=== PATIENT | male | born 1935 | race Caucasian/White ===

== ENCOUNTER 2018-08-17 21:11 | Emergency (ER) | payer OTHER ==
[~2018-08-17] VITALS: Ht 182.9 cm; Wt 68.0 kg
[2018-08-17 21:16] VITALS: Ht 182.9 cm; Wt 68.0 kg
[2018-08-17 22:59] VITALS: BP 106/78
== END 2018-08-17 22:59 | disposition home or self-care (01) ==
LOC: ED 21:11
DX: S90.32XA Contusion of left foot, initial encounter (principal); G20 Parkinson's disease; F02.80 Dementia in other diseases classified elsewhere, unspecified severity, without behavioral disturbance, psychotic disturbance, mood disturbance, and anxiety; X58.XXXA Exposure to other specified factors, initial encounter; Y93.89 Activity, other specified; Y92.89 Other specified places as the place of occurrence of the external cause; Y99.8 Other external cause status
CPT/HCPCS: Q0092

== ENCOUNTER 2018-09-08 10:34 | Inpatient (IN) | payer OTHER ==
[~2018-09-08] VITALS: Ht 172.7 cm; Wt 63.2 kg
[2018-09-08 10:38] VITALS: Ht 172.7 cm; Wt 63.2 kg
--- NOTE | 2018-09-08 10:56 | NUR ---
PT NOTED TO HAVE BLACK STOOL IN DIAPER ON RECTAL TEMP CK. ERP MADE AWARE. OCCULT TEST DONE BY ERP AND FOUND TO BE "POSITIVE." INCONTINENT CARE BEING GIVEN.
--- NOTE | 2018-09-08 10:56 | NUR ---
ERP AT BEDSIDE ON PT'S ARRIVAL.
--- NOTE | 2018-09-08 11:15 | NUR ---
AT BEDSIDE AND CONFIRMS EMS STORY WITH THE EXCEPTION THAT SHE WAS THE ONE BATHING PT AND WITNESSED SEIZURE NOT DAUGHTER.
--- NOTE | 2018-09-08 11:35 | NUR ---
X-RAY TEST BEING DONE AT BEDSIDE.
[2018-09-08 11:36] LABS: CALCIUM 8.5 mg/dL (8.5-10.1); CARBON DIOXIDE 21.3 mmol/L (21-32); CHLORIDE SERUM 110 mmol/L (98-107); CREATININE SERUM 1.4 mg/dL (0.7-1.3); GLUCOSE SERUM 124 mg/dL (74-106); POTASSIUM SERUM 4.1 mmol/L (3.5-5.1); SODIUM SERUM 145 mmol/L (136-145)
[2018-09-08 11:44] LABS: BASOPHIL % 0.3 % (0-2)
[2018-09-08 11:48] LABS: ALKALINE PHOSPHATASE 72 U/L (46-116); ALT/SGPT 16 U/L (16-63); AST/SGOT 11 U/L (15-37); BILIRUBIN TOTAL 0.3 mg/dL (0.20-1.00); FREE T4 1.22 ng/dL (0.76-1.46); FREE THYROXINE INDEX 2.7 ug/dL (1.4-4.5); T4(THYROXINE) 7.1 ug/dL (4.7-13.3); TOTAL PROTEIN, SERUM 6.9 g/dL (6.4-8.2)
[2018-09-08 11:49] LABS: ALBUMIN 2.6 g/dL (3.4-5.0); CK-MB 1.6 ng/mL (0-3.6)
[2018-09-08 12:20] LABS: RED CELL DISTRIBUTION WIDTH 21.5 % (11.5-14.5)
[2018-09-08 12:38] LABS: UA SPECIFIC GRAVITY 1.025 (1.005-1.035); microscopic required? YES; urine erythrocyte 3+ (NEGATIVE)
--- NOTE | 2018-09-08 12:52 | NUR ---
PT TO CT AT THIS TIME.
--- NOTE | 2018-09-08 13:27 | NUR ---
ADDITIONAL MEDS GIVEN PER ERP'S ORDERS. NO CHANGE IN STATUS AT THIS TIME. FAMILY REMAINS AT BEDSIDE. PT'S BELONGINGS WITH FAMILY.
[2018-09-08 13:32] LABS: ERYTHROCYTE SED RATE 50 mm/hr (0-20)
[2018-09-08 13:36] LABS: PLATELET COUNT 537 x10^3mcL (130-400)
--- NOTE | 2018-09-08 13:38 | NUR ---
PT'S EYES OPENED AND RESPONDING TO RN. APPEARS MORE ALERT. 2ND BLANKET GIVEN. FAMILY TAKEN TURNS AT BEDSIDE. VSS. BREATHING EASY AND UNLABORED.
[2018-09-08] MEDS ORDERED: AZILECT1 M1 PO (13:54)
[2018-09-08] MEDS ORDERED: PROSCAR5 MG PO (13:55)
[2018-09-08] MEDS ORDERED: FLO4 PO (13:55)
[2018-09-08] MEDS ORDERED: [UNRECOGNIZED DRUG - OTHER] PO (13:56)
[2018-09-08] MEDS ORDERED: NEUPRO TD (13:57)
[2018-09-08] MEDS ORDERED: LATANOPROST2.5 ML OU (13:57)
[2018-09-08] MEDS ORDERED: ANORO ELLIPTA1 POW IH (13:58)
[2018-09-08 14:32] VITALS: BP 143/60
--- NOTE | 2018-09-08 15:43 | NUR ---
PT ARRIVED ON UNIT VIA BED AT THIS TIME. ACCOMPANIED BY RN AND ERT. TRANSFERRED TO ICU BED. STUDENT LIFE VICE PRESIDENT PLACED. PT LETHARGIC, DOES NOT FOLLOW COMMANDS, DOES NOT OPEN EYES SPONT AND RESPONDS TO PAINFUL STIMULI. TREMORS/TICS NOTED TO BUE. RA. CHEST EXPANSION SYMM, BREATHING E/U AND REGULAR EFFORT. RUL WHEEZE NOTED UPON AUSCULTATED. NO COUGH NOTED. NSR WITH RBBB ON MONITOR. CHEST WALL INTACT. ABD SOFT, FLAT. BOWEL SOUNDS ACTIVE X4 QUADRANTS. PER DAUGHTER LAST BM THIS AM. F/C IN PLACE, DRAINING TO GRAVITY AND NO DEPENDENT LOOPS. MINIMAL URINE IN BAG. NO EDEMA NOTED. CAP REFILL IMM. PULSES MODERATE X4. EXTREMITIES WARM, DRY AND VIVEROS. LFA AND RFA PERIPHERAL IV SITES WNL AND DRESSINGS CDI. 500 ML NS INFUSING @ 126 ML/HR. SKIN INTACT. ISOGEL MATTRESS PLACED AND SCDS TO BLE. SEIZURE PRECAUTIONS PLACED. AND DAUGHTER AT BEDSIDE AND UPDATED ON PT'S PLAN OF CARE. EDUCATED ON NEED FOR INCREASED MONITORING. IN AGREEMENT
[2018-09-08] MEDS ORDERED: KEPPRA500 MG PO (16:21)
--- NOTE | 2018-09-08 16:24 | NUR ---
PHYSICAL THERAPY DAILY NOTES CO-SIGN All documentation done by the Inspector Poising for 09/08/18 has been reviewed. I agree with the documentation. Reviewed/Co-Signed by: Sho Alonso PT Documentation Done by:URSZULA MAY
--- NOTE | 2018-09-08 17:00 | NUR ---
PT PLACED ON ISOGEL MATTRESS. BLE SCDS PLACED
[2018-09-08 17:01] VITALS: BP 127/79
--- NOTE | 2018-09-08 17:31 | NUR ---
PT GIVEN ROLLED UP HAND TOWEL FOR HANDS TO FIDDLE WITH.
--- NOTE | 2018-09-08 17:57 | NUR ---
DR. ROMAN AT BEDSIDE TO SPEAK WITH PT'S DAUGHTER, ED, PER ED PT DOES HAVE A DNR IN PLACE. STS HER MOTHER WILL BRING A COPY FOR US. PLAN OF CARE DISCUSSED WITH DAUGHTER. ALL PARTIES IN AGREEMENT.
--- NOTE | 2018-09-08 18:16 | NUR ---
PT'S BROUGHT IN PT'S HOME MED, NEUPRO, PATCHES. TAKEN TO PHARMACY FOR VERIFICATION
[2018-09-08 19:20] VITALS: BP 140/100
[2018-09-09] VITALS: BP 140/55
--- NOTE | 2018-09-09 | NUR ---
PT SLEEPING. GRIMACES/MOANS TO PAINFUL STIMULI. NO SOB ON ROOM AIR. BREATHING EVEN AND UNLABORED. NO DISTRESS NOTED. NO S/S OF PAIN. TREMORS NOTED TO BUE. SAFETY MEASURES IN PLACE. BED IN LOWEST POSITION. SIDE RAILS WITH PADS. WILL CONTINUE TO MONITOR.
[2018-09-09 03:40] VITALS: BP 131/50
--- NOTE | 2018-09-09 03:40 | NUR ---
PT LETHARGIC. GRIMACES TO PAINFUL STIMULI. NO SOB ON ROOM AIR. BREATHING EVEN AND UNLABORED. CHEST RISE SYMMETRICAL. TREMORES TO BUE. NO SEIZURES NOTED. SAFETY MEASURES IN PLACE. BED IN LOWEST POSITION. SIDE RAILS UP WITH PADS. WILL CONTINUE TO MONITOR.
[2018-09-09 05:20] LABS: BASOPHIL % 0.6 % (0-2); PLATELET COUNT 396 x10^3mcL (130-400)
[2018-09-09 05:25] LABS: RED CELL DISTRIBUTION WIDTH 21.2 % (11.5-14.5)
[2018-09-09 05:53] LABS: CALCIUM 8.4 mg/dL (8.5-10.1); CHLORIDE SERUM 114 mmol/L (98-107); GLUCOSE SERUM 80 mg/dL (74-106); POTASSIUM SERUM 3.6 mmol/L (3.5-5.1); SODIUM SERUM 145 mmol/L (136-145); T4(THYROXINE) 5.9 ug/dL (4.7-13.3)
--- NOTE | 2018-09-09 06:26 | NUR ---
PT REMAINED LETHARGIC. OPENED EYES AND GROANED WHEN TURNED THIS MORNING. NO SOB ON ROOM AIR. SMALL SOFT TARRY STOOL X1. CLEANED AND MADE COMFORTABLE. SAFETY MEASURES MAINTAINED. SIDE RAILS UP WITH PADS. WILL ENDORSE CONTINUITY OF CARE TO ONCOMING RN.
--- NOTE | 2018-09-09 07:21 | NUR ---
RECEIVED REPORT FROM LD MCKENZIE. WILL RESUME TREAMENT AND CARE PLAN.
--- NOTE | 2018-09-09 08:00 | NUR ---
DR. ROMAN AT BEDSIDE ASSESSING PT. PER DR. ROMAN PT IS OKAY TO BE TRANSFER TO [facility]. RECIEVED NO OTHER NEW ORDERS.
--- NOTE | 2018-09-09 08:35 | NUR ---
RECIEVED CONSENT FROM TO REQUEST MEDICAL RECORDS FROM [facility].
--- NOTE | 2018-09-09 08:50 | NUR ---
AT PT BEDSIDE. DISCUSSED WITH AND DAUGHTER ABOUT DOING EGD PROCEDURE. ALL QUESTIONS AND CONCERNS ANSWERED. AGREED. CONSENT SIGNED FOR PROCEDURE.
[2018-09-09 09:13] LABS: T3 TOTAL 0.98 ng/mL
--- NOTE | 2018-09-09 10:27 | NUR ---
EGD SET UP AT BEDSIDE WITH MARYJO RN AT BEDSIDE, AWAITING FOR DR. HANSON'S ARRIVAL.
[2018-09-09 10:37] LABS: RED BLOOD CELLS 3.4 M/mm3 (4.52-5.90)
--- NOTE | 2018-09-09 10:45 | NUR ---
DR. VALENTINO AT BEDSIDE FOR EGD.
--- NOTE | 2018-09-09 10:55 | NUR ---
DR. VALENTINO EXPLAINING EGD RESULTS AND RECOMMEND ENDOSCOPY BEFORE D/C. PT'S AND DAUGHTER VERBALIZED UNDERSTANINDG. A COPY OF PICTURES FROM PROCEDURE WAS PROVIDED.
--- NOTE | 2018-09-09 11:02 | NUR ---
SECURITY ALARM INSTALLER AT BEDSIDE FOR BLOOD DRAW.
--- NOTE | 2018-09-09 11:04 | NUR ---
PER GI RN PT HAS EROSIVE GASTRITIST AND GERD. PER RN PT ERCIEVED 2MG OF VERSED AND 25 MCG OF FENTANY; DURING EGD. AWAITING FOR H. PYLORI RSULTS.
--- NOTE | 2018-09-09 12:04 | NUR ---
PT HAD A LIQUID BM, ALL LINENS WERE CHANGED. NO SIGNS OF SKIN BREAK DOWN.
[2018-09-09 12:09] LABS: IRON 8 ug/dL (65-170); TOTAL IRON BINDING CAPACITY 186 ug/dL (250-450)
[2018-09-09 12:15] VITALS: BP 116/52
--- NOTE | 2018-09-09 13:17 | NUR ---
PER SPOKE WITH MOTHER OF PATIENT. MOTHER GAVE CONSENT VIA TELEPHONE FOR TRACH PLACEMENT AND CENTRAL LINE PLACEMENT VIA TELEPHONE CONSENT
--- NOTE | 2018-09-09 13:40 | NUR ---
PT HAD A LIQUID LOOSE BM, LINENS CLEANED AND PT CLEANED.
--- NOTE | 2018-09-09 14:56 | NUR ---
REPORT GIVEN TO BRAD MCKENZIE, PT WILL BE TRANSFERRING TO ROOM 206B BY BED ON ROOM AIR WITH TELE MONITOR ATTACH. DAUGHTER IS MADE AWARE OF TRANSFER. PT HAS ALL PERSONAL BELONGINGS.
--- NOTE | 2018-09-09 15:12 | NUR ---
PATIENT TRANSFERED FROM ICU BED 6 TO [facility] ACCOMPANIED BY MIN RN. RECEIVED PATIENT SITTING UP IN BED AWAKE A/O TO SELF, AND DAUGHTER AT BEDSIDE. TELE # 6 APPLIED, NO SIGNS OF PAIN NOTED. BREATHING EVEN UNLABBORED ON RA, NO DISTRESS NOTED. IV TO RFA AND LFA H/L INTACT AND PATEINT. PATIENT HAS QUIROS CATH TO GRAVITY DRAINING YELLOW URINE. PATIENT AND FAMILY ORIENTED TO ROOM. INSTRUCTED TO CALL FOR ASSISTANCE IF NEEDED. SAFETY PRECAUTIONS IN PLACE. WILL MONITOR.
--- NOTE | 2018-09-09 15:24 | NUR ---
RECEIVED TELEPHONE ORDERS FROM DR Pat PATEL TO TRANSFER PATIENT TO [facility] TODAY VIA [facility]. ARRANGEMENTS DONE BY CASE MANAGEMENT. ATTENDING NURSE BRAD MADE AWARE.
[2018-09-09 15:30] VITALS: BP 151/47
--- NOTE | 2018-09-09 16:37 | NUR ---
CALLED [facility] AND GAVE PATIENT REPORT TO KELSI MCKENZIE. PATIENT IS BEING TRANSFERED PER INSURANCE REQUEST TO CONTRACTED FACILITY. ALL QUESTIONS AND CONCERNS ADDRESSED. PATIENT IS SCHEDULED TO PICKED UP BY [facility] AT 1730. AND DAUGTHER AT BEDSIDE AWARE.
--- NOTE | 2018-09-09 16:50 | NUR ---
PATIENT IS TO BE TRANSFERED TO [facility]. PATIENTS SONIA AND DAUGHTER ED AT BEDSIDE, VERBALIZED UNDERSTANDING PATIENT IS BEING TRANSFERED [place] [facility] [place] HOSPITALIST PROGRAM DIRECTOR TIME AT 1730. ALL QUESTIONS AND CONCERNS ADDRESSED. SAFETY PRECAUTIONS IN PLACE.
--- NOTE | 2018-09-09 18:24 | NUR ---
PATIENT IS TO BE TRANSFERED TO [facility] AT BEDSIDE. PATIENT TRANSFERED FROM BED TO [facility], IV TO RFA/LFA H/L, QUIROS CATH IN PLACE. PATIENT ASSISTED DOWN TO MEDICAL VAN VIA [facility] ACCOMPANIED BY [facility], AND DAUGHTER, PER PATIENTS BELONINGS ARE AT HOME.
[2018-09-10 04:13] LABS: RAPID PLASMA REAGIN Non Reactive (Non Reactive)
== END 2018-09-09 18:25 | disposition short-term general hospital (02) | DRG 871 ==
LOC: ED 10:34 → IC 13:45 → DU 09-09 15:12
PROVIDERS: Internal Medicine Gastroenterology; Specialist; ADMIT Internal Medicine
PROC: 0DB68ZX Excision of Stomach, Via Natural or Artificial Opening Endoscopic, Diagnostic (ICD-10-PCS; principal; 2018-09-09 09:30)
DX: A41.9 Sepsis, unspecified organism (principal); N17.0 Acute kidney failure with tubular necrosis; N39.0 Urinary tract infection, site not specified; E44.0 Moderate protein-calorie malnutrition; K22.10 Ulcer of esophagus without bleeding; E87.2 Acidosis; K92.1 Melena; J44.1 Chronic obstructive pulmonary disease with (acute) exacerbation; D50.0 Iron deficiency anemia secondary to blood loss (chronic); K21.0 Gastro-esophageal reflux disease with esophagitis; K44.9 Diaphragmatic hernia without obstruction or gangrene; I95.9 Hypotension, unspecified; G20 Parkinson's disease; F02.80 Dementia in other diseases classified elsewhere, unspecified severity, without behavioral disturbance, psychotic disturbance, mood disturbance, and anxiety; G40.409 Other generalized epilepsy and epileptic syndromes, not intractable, without status epilepticus; N18.2 Chronic kidney disease, stage 2 (mild); Z68.25 Body mass index [BMI] 25.0-25.9, adult
CPT/HCPCS: 36600; 43235; 84439; 86431; 87804; 90658; C9113; J0171; J0696; J1200; J1610; J1953; J1956; J2060; J2250; J2310; J3010; J3490; J7040; Q0092

== ENCOUNTER 2018-11-29 20:26 | Inpatient (IN) | payer OTHER, MEDICAID ==
[~2018-11-29] VITALS: Ht 177.8 cm; Wt 64.9 kg
[~2018-11-29 20:26] MED LIST: ANORO ELLIPTA1 POW IH; AZILECT1 M1 PO; FLO4 PO; KEPPRA500 MG PO; LATANOPROST2.5 ML OU; NEUPRO TD; PROSCAR5 MG PO; [UNRECOGNIZED DRUG - OTHER] PO
[2018-11-29 21:02] VITALS: Ht 177.8 cm; Wt 64.9 kg
[2018-11-30] VITALS (7 sets, daily range): BP systolic 150–172; BP diastolic 40–71
--- NOTE | 2018-11-30 00:25 | NUR ---
PATIENT PRESENTED TO THE ED WITH C/O DIARRHEA FOR 3 WEEKS. PATIENT HAD A GTUBE PLACED IN SEP 2018, AND HAS BEEN ON THE SAME FORMULA SINCE PLACED. PATIENTS STATES SHE HAS TRIED TO CALL HIS PCP BUT NOBODY HAS RETURNED HER CALL. PATIENT BREATHING EVEN AND UNLABORED. NO OTHER S/S OF DISTRESS NOTED. PLACED PATIENT ON ALL MONITORS FOR FURTHER EVALUATION.
[2018-11-30 00:27] LABS: CHLORIDE SERUM 108 mmol/L (98-107); CREATININE SERUM 0.8 mg/dL (0.7-1.3); GLUCOSE SERUM 121 mg/dL (74-106); POTASSIUM SERUM 3.1 mmol/L (3.5-5.1); SODIUM SERUM 143 mmol/L (136-145)
[2018-11-30 00:32] LABS: ALKALINE PHOSPHATASE 73 U/L (46-116); ALT/SGPT 14 U/L (16-63); AST/SGOT 3 U/L (15-37); BILIRUBIN TOTAL 0.3 mg/dL (0.20-1.00); TOTAL PROTEIN, SERUM 7.5 g/dL (6.4-8.2)
[2018-11-30 00:33] LABS: ALBUMIN 3.3 g/dL (3.4-5.0)
[2018-11-30 00:35] LABS: BASOPHIL % 0.3 % (0-2); PLATELET COUNT 315 x10^3mcL (130-400)
[2018-11-30 00:36] LABS: RED CELL DISTRIBUTION WIDTH 20.4 % (11.5-14.5)
--- NOTE | 2018-11-30 01:00 | NUR ---
PATIENT RESTING ON GURNEY- NO S/S OF DISTRES NOTED. FAMILY IS BEDSIDE.
[2018-11-30] MEDS ORDERED: IPRATROPIUM BROM3 M2 (02:02)
[2018-11-30] MEDS ORDERED: OXCARBAZEPINE300 M1 PO (02:03)
[2018-11-30] MEDS ORDERED: LANSOPRAZOLE30 M2 PO (02:03)
[2018-11-30] MEDS ORDERED: METHENAMINE HIPP1 G1 PO (02:04)
[2018-11-30] MEDS ORDERED: SINEMET 25-1001 TAB PO (02:05)
--- NOTE | 2018-11-30 02:11 | NUR ---
PROVIDED REPORT TO JONAH LANDRUM FOR CONTINUED CARE OF PATIENT.
[2018-11-30 02:18] LABS: CHOLESTEROL/HDL RATIO 2.4; MAGNESIUM 2.1 mg/dL (1.8-2.4)
[2018-11-30 02:22] LABS: FREE T4 0.64 ng/dL (0.76-1.46); T3 TOTAL 0.99 ng/mL
[2018-11-30 02:26] LABS: FREE THYROXINE INDEX 1.2 ug/dL (1.4-4.5); T4(THYROXINE) 3.6 ug/dL (4.7-13.3)
--- NOTE | 2018-11-30 02:31 | NUR ---
RECEIVED PT FROM ED VIA DESTIN ACCOMPANIED BY RN AND FAMILY. NO ACUTE DISTRESS NOTED. EVEN AND UNLABORED RESPIRATION ON 2LNC. ON TELE #28 READING SR 66 WITH BBB. IV 24G TO R WRIST PATENT AND INTACT. PT UPPER EXTREMITIES CONTRACTED. HX OF PARKINSONS. AIR MATTRESS APPLIED. CONTACT ISOLATION INITIATED FOR POSS. CDIFF. BED IN LOWEST POSITION. SIDE RAILS UP X2. CALL LIGHT WITHIN REACH. WILL CONTINUE TO MONITOR.
--- NOTE | 2018-11-30 06:20 | NUR ---
PT HAD A BOWEL MOVEMENT. SOFT MUSTARD OUTPUT. CLEANED AND REPOSITINED PT TO RIGHT SIDE. PT TOLERATED WELL. NO ACUTE DISTRESS NOTED. FAMILY AT BEDSIDE. EVEN AND UNLABORED RESPIRATIONS ON 2LNC. IV PATENT AND INTACT RUNNING FLUIDS PER EMAR. SZ PRECAUTION IN PLACE. BED IN LOWEST POSITION. SIDE RAILS UP X2. CALL LIGHT WITHIN REACH. WILL ENDORSE TO ONCOMING SHIFT.
[2018-11-30 06:29] LABS: BASOPHIL % 0.3 % (0-2); PLATELET COUNT 291 x10^3mcL (130-400)
[2018-11-30 06:41] LABS: RED CELL DISTRIBUTION WIDTH 20.4 % (11.5-14.5)
[2018-11-30 06:58] LABS: CALCIUM 8.8 mg/dL (8.5-10.1); CARBON DIOXIDE 23.2 mmol/L (21-32); CHLORIDE SERUM 111 mmol/L (98-107); CREATININE SERUM 0.7 mg/dL (0.7-1.3); GLUCOSE SERUM 89 mg/dL (74-106); SODIUM SERUM 147 mmol/L (136-145)
--- NOTE | 2018-11-30 07:15 | NUR ---
RECEIVED PT FROM ADRIANA RN. PT FOUND LAYING IN BED RESTING WITH BOTH EYES CLOSED. NO S/S OF ACUTE DISTRESS. NO SOB ON 2LNC. STRICT NPO. CONTACT PLUS PRECAUTIONS IN PLACE. IV WNL TO R WRIST, IV FLUIDS FLOWING. AIR MATTRESS IN PLACE. OPTIFOAM IN PLACE TO LEFT BUTTOCK. INSTRUCTED FAMILY TO USE CALL LIGHT TO CALL FOR ASSISTANCE PRN. VERBALIZED UNDERSTANDING. BED IN LOW POSITION. CALL LIGHT WITHIN REACH. WILL CONT. TO MONITOR.
--- NOTE | 2018-11-30 11:44 | NUR ---
PT LAYING IN BED. AA/OX1. NO S/S OF ACUTE DISTRESS. NO COMPLAINT OF PAIN. NO SOB ON 2LNC. NO CHEST PAIN. BLE ELEVATED WITH PILLOWS. HOB ELEVATED. PT LAYING ON RIGHT SIDE. CONTACT PRECAUTIONS IN PLACE. IV WNL, IV FLUIDS FLOWING. PT CALM/COOPERATIVE. BED ALARM ON. FALL PREC IN PLACE. FAMILY AT BEDSIDE. WILL CONT. TO MONITOR.
--- NOTE | 2018-11-30 13:05 | NUR ---
URINE SAMPLE OBTAINED VIA STRAIGHT CATH PER PHYSICIAN ORDER. OUTPUT 500CC, ORANGE/CLEAR. SAMPLE SENT TO LAB. PT TOLERATED PROCEDURE WELL. NO S/S OF ACUTE DISTRESS. AA/OX1. FALL PREC IN PLACE. WILL CONT. TO MONITOR.
[2018-11-30 13:54] LABS: UA SPECIFIC GRAVITY 1.025 (1.005-1.035); microscopic required? YES
[2018-11-30 13:55] LABS: urine erythrocyte NEGATIVE (NEGATIVE)
--- NOTE | 2018-11-30 15:00 | NUR ---
IV LEAKING TO RW, IV REMOVED, CATHETER IN TACT. PRESSURE APPLIED. IV INSERTED TO RH, 22 GUAGE, PATENT WITH GOOD BLOOD RETURN. IV FLUIDS FLOWING. PT CALM/COOPERATIVE. FAMILY AT BEDSIDE. WILL CONT. TO MONITOR.
--- NOTE | 2018-11-30 18:39 | NUR ---
PT LAYING IN BED. AA/OX1. NO S/S OF ACUTE DISTRESS. DENIES PAIN. NO SOB ON 2LNC. CALM/COOPERATIVE. PEG TUBE IN PLACE TO ABDOMEN. CDI. OPTIFOAM IN PLACE TO BUTTOCK. BLE ELEVATED. FAMILY AT BEDSIDE. NO N/V. NO ABD. PAIN. FALL PRECAUTIONS IN PLACE. BED IN LOW POSITION. CALL LIGHT WITHIN REACH. FAMILY AT BEDSIDE. WILL ENDORSE TO ONCOMING SHIFT.
--- NOTE | 2018-11-30 19:25 | NUR ---
RECEIVED PT FROM PREVIOUS SHIFT NURSE. PT AOX1, SPEECH GARBLED. NO SOB/DIFFICULTY BREATHING NOTED, ON 2L NC. G. TUBE NOTED TO MID ABD. IV TO R. HAND, INTACT AND PATENT. BED IN LOWEST POSITION. CALL LIGHT WITHIN REACH. WILL CONTINUE TO MONITOR.
--- NOTE | 2018-11-30 21:25 | NUR ---
PT BP 172/63 (96), HR 49. DR. PINA NOTIFIED. AWAITING FURTHER ORDERS.
--- NOTE | 2018-11-30 21:50 | NUR ---
PT BP 172/59 (96), HR 49. DR. PINA NOTIFIED. AWAITING FURTHER ORDERS.
--- NOTE | 2018-11-30 22:48 | NUR ---
HYDRALAZINE ADMINISITERED SLOW IVP PER DR. ROBLERO. WILL CONTINUE TO MONITOR.
--- NOTE | 2018-11-30 23:00 | NUR ---
BP NOW 155/55 MAP 89, HR 56.
[2018-12-01] VITALS (10 sets, daily range): BP systolic 105–175; BP diastolic 38–95
--- NOTE | 2018-12-01 01:40 | NUR ---
PT RESTING IN BED. RR EVEN AND UNLABORED. NO ACUTE DISTRESS NOTED. CALL LIGHT WITHIN REACH. BED IN LOWEST POSITION. WILL CONTINUE TO MONITOR.
--- NOTE | 2018-12-01 06:11 | NUR ---
PT BP 161/95 HR 56, PT MEDICATED PER EMAR. WILL CONTINUE TO MONITOR.
[2018-12-01 06:37] LABS: BASOPHIL % 0.6 % (0-2); PLATELET COUNT 248 x10^3mcL (130-400)
[2018-12-01 06:46] LABS: CALCIUM 8.7 mg/dL (8.5-10.1); CARBON DIOXIDE 20.4 mmol/L (21-32); CHLORIDE SERUM 111 mmol/L (98-107); CREATININE SERUM 0.7 mg/dL (0.7-1.3); GLUCOSE SERUM 68 mg/dL (74-106); SODIUM SERUM 145 mmol/L (136-145)
--- NOTE | 2018-12-01 07:45 | NUR ---
THE PATIENT AWAKE BUT DISORIENTED AT THIS TIME. NO INDICATION OF PAIN, OR SHORTNESS OF BREATH. TELE # 28 READS SINUS BRADYCARDIA WITH BBB. IVF NS VIA IV SITE TO RIGHT HAND. PEG TUBE IN PLACE AND CLAMPED. SOME DRY STAIN NOTED AT THE SITE. PATIENT WAS ON AIR MATTRESS. CALL LIGHT WITHIN REACH. SIDE RAILS UP X3 AND PADDED FOR SEIZURE PRECAUTION. BED WAS AT LOWEST POSITION. THE DAUGHTER WAS AT BEDSIDE.
[2018-12-01] MEDS ORDERED: DOXYZOSIN PEG (11:04)
[2018-12-01] MEDS ORDERED: XANAX0.5 MG (11:06)
--- NOTE | 2018-12-01 12:06 | NUR ---
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 Trigger: N/V/D >3 d, unintentional wt loss >10# x 1 month Per H&P, Pt is 83yo M with PMH of Parkinson's disease, dementia, multiple UTIs, prostate CA, unspecified seizure disorder and COPD was admitted with cc of 3 weeks of nonbloody diarrhea wth 4-5 episodes per day. Pt is prescribed Vancomycin through peg-tube for possible C.diff colitis.Peg-tube was placed because of pt's refusal to eat after last hospitalization. Prostate CA is in full remission, received TURP with radiation in the past. FNS was consulted on 11/30 for "Tube feeding". RDN visit(12/01): Per pt's , at home pt receives Jevity 1.5 bolus feeds 4 times a day. She said that she finishes five, 8oz containers per day. This regimen would provide 1200 ml of formula, 1800kcal and 76g protein. Pt's also states that pt does not have any N/V at this time but continues to have diarrhea. Questions regarding his home TF regimen were answered and current recommendations were briefly discussed. Problem with: N: no V: no D: yes C: no Problems with: Chewing/Swallowing: PEG dependent Current appetite: Per pt's , pt has good appetite and feels hungry Recent wt change: 40lbs x 6 month %wt change: 11.2 (significant) Vitamin/Supplement use: none Special diet at home: none, PEG dependent Physical activity: none Education: Questions regarding enteral nutrition were answered. Specific diet education was not applicable at this time. Estimated Nutritional Needs Based on actual body weight 64.8 kg Energy: 8818-5000 kcal/d (30-35 kcal/kg- weight gain) Protein: 65-78 g/d (1.0-1.2 g/kg)-maintenance and preservation of lean body mass Fluid: 6743-1940 ml/d (1 ml/kcal-fluid balance) or per doctor Nutrition Diagnosis 1. Unintentional weight loss related to medical condition as evidenced by significant weight loss of 11.2% x 3 months. 2. Inadequate Enteral nutrition infusion related to TF not initiated as evidenced by clamped PEG tube. Intervention 1. Recommend Jevity 1.2 @ 45ml/hr, goal 70ml/hr. FWF 150ml Q6H. Goal rate will provide 2000 kcal and 93g protein, 1355 ml free water. Monitor/Evaluate Goal: TF intake at least 75% of estimated needs Monitor: TF intake/Tolerance, Labs, GI function F/U in 2-3 days as high risk 5/3-5/4
--- NOTE | 2018-12-01 12:07 | NUR ---
1. Recommend Jevity 1.2 @ 45ml/hr, goal 70ml/hr. FWF 150ml Q6H. Goal rate will provide 2000 kcal and 93g protein, 1355 ml free water.
--- NOTE | 2018-12-01 13:13 | NUR ---
THE PATIENT'S BP 175/55 ABOUT 1HOUR AGO. RECHECKED BP 166/53, AND DR. TERRY WAS MADE AWARE. DR. TERRY WANTED TO HOLD ON HYDRALAZINE IVP UNTIL THE TIME DUE.
--- NOTE | 2018-12-01 16:40 | NUR ---
PEG TUBE WAS CONNECTED TO TUBE FEEDING WITH Zjdg.cn 1.2. TUBE FEEDING WAS INITIATED AT 10ML/HR AND FREE WATER FLUSHED AT 150CC EVERY 6HR ORDERED.
--- NOTE | 2018-12-01 18:37 | NUR ---
THE PATIENT WAS DISORIENTED AND MUMBLING INCOMPREHENSIVE WORDS THROUGHOUT THE SHIFT. TUBE FEEDING VIA PEG AT 10ML/HR. PATIENT WAS TURNED Q2H/PRN DURING THE SHIFT. THE FAMILY WAS AT BEDSIDE AT ALL THE TIMES AND INVOLVING CARE.
--- NOTE | 2018-12-01 19:30 | NUR ---
PT IS A/O x2. PT IS ABLE TO MILDLY COMMUNICATE NEEDS, MUMMBLED SPEECH. SZ PRECAUTION IN PLACE. MED SURG. PULSES ARE PRESENT. NO EDEMA NOTED. LUNGS DIMINISHED AT YESSY LUNGS. ON RA. EQUAL CHEST RISE AND FALL. BOWEL SOUNDS PRESENT x4. GTUB TO MID ABD, INTACT AND CLEAN. JEVITY RUNNING AT 10CC/HR. NO RESIDUAL, INCREASED FEEDING TO 20CC. GOAL IS 70. PT IS BEDBOUND. ON A AIRMATTRESS. L BUTTOCK OPTIFOAM IN PLACE ON L BUTTOCK FROM OLD WOUND, CLEAN AND INTACT. SKIN INTACT. IV ON R HAND INTACT AND PATENT. NO SIGN OF IRRITATION OR INFILTRATION NOTED. DAUGHTER AND AT BEDSIDE. BED AT LOWEST SETTING. BED ALARM IS ON. WILL CONTINUE TO [facility].
--- NOTE | 2018-12-02 00:31 | NUR ---
PT TOLERATING FEEDING WELL. INCREASED RATE TO 40CC.
[2018-12-02 06:04] VITALS: BP 148/68
--- NOTE | 2018-12-02 06:55 | NUR ---
PT IS RESTING IN BED. NO ACUTE EVENT OCCURED AT NIGHT. NEW IV INSERTED, PT TOLERATED WELL. PT TOLERATING FEEDING WELL, INCREASED RATE FROM 40CC TO 50CC. PT WAS CHANGED AND MADE COMFORTABLE. BED IS AT LOWEST SETTING. CALL LIGHT WITHIN REACH. BED ALARM IS ON. WILL ENDORSE TO AM NURSE.
[2018-12-02 06:59] LABS: CALCIUM 8.6 mg/dL (8.5-10.1); CARBON DIOXIDE 21.4 mmol/L (21-32); CHLORIDE SERUM 111 mmol/L (98-107); CREATININE SERUM 0.7 mg/dL (0.7-1.3); GLUCOSE SERUM 72 mg/dL (74-106); MAGNESIUM 1.8 mg/dL (1.8-2.4); POTASSIUM SERUM 3.1 mmol/L (3.5-5.1); SODIUM SERUM 147 mmol/L (136-145)
[2018-12-02 07:25] LABS: BASOPHIL % 0.1 % (0-2); PLATELET COUNT 269 x10^3mcL (130-400)
--- NOTE | 2018-12-02 07:30 | NUR ---
AAO TIMES 3. NO TELE. MED SURG. LUNGS CTA. NO SOB. O2 SAT ON RA 96%. BS'S ACTIVE TIMES 4. GT FEEDING JEVITY 50 ML PER HOUR, NO RESIDUAL, SO I INCREASED THE RATE TO 60 ML PER HOUR. INCONTINENT OF BOWEL AND BLADDER. ON AIR MATTRESS. OPTIFOAM TO BUTTOCKS CDI. IV SITE CDI. SEIZURE PRECAUTIONS. PERIPHERAL PULSES PALPABLE, NO EDEMA. NO C/O PAIN. AT BEDSIDE, SUPPORTIVE.
[2018-12-02 08:15] LABS: RED CELL DISTRIBUTION WIDTH 20.1 % (11.5-14.5)
--- NOTE | 2018-12-02 08:40 | NUR ---
SCREEN FOR LOW ALEXANDER SCALE AT RISK PRESSURE ULCER INJURY PREVENTION INTERVENTIONS IN PLACE. -TURN AND REPOSITION PATIENT Q 2H OFFLOAD LEFT AND RIGHT HIPS -ASSESS AND MONITOR SKIN CONDITION DURING POSITION CHANGE -OFFLOAD BILATERAL HEELS BY PLACING PILLOWS UNDER CALVES AT ALL TIMES, UNLESS OTHERWISE CONTRAINDICATED -PRESSURE REDISTRIBUTION SURFACE THERAPY -KEEP SKIN CLEAN AND DRY AT ALL TIMES.
[2018-12-02 10:35] VITALS: BP 157/48
[2018-12-02 17:30] VITALS: BP 187/63
--- NOTE | 2018-12-02 18:15 | NUR ---
AAO TIMES 3. PRESENT MOST OF DAY. MED SURG PATIENT. NO SOB. ON AIR MATTRESS. OPTIFOAM TO BUTTOCKS CDI. INCONTINENT OF BOWEL AND BLADDER, HE HAD 5 WATERY STOOLS TODAY. NO C/O PAIN. IV SITE CDI. GTF, NO RESIDUAL, RATE TURNED UP TO 70 ML PER HOUR, SITE CDI.
--- NOTE | 2018-12-02 19:15 | NUR ---
PT RECIEVED FROM THE DAY SHIFT RN. PT IS RESTING IN BED WITH EYES CLOSED. PT SPOUSE IS AT THE BEDSIDE. TREMBLING NOTED ON THE BILATERAL UPPER EXTREMITIES. PT EXTREMITIES ARE RIGID AT THIS TIME. PT HAS G-TUBE FEEDING AT THIS TIME RUNNING AT 70ML/HR AND A 150ML FLUSH Q6HR. SAFETY AND COMFORT MEASURES MAINTAINED, BED IN LOWEST POSITION, CALL LIGHT WITHIN REACH.
--- NOTE | 2018-12-02 20:58 | NUR ---
PT APPEARS TO BE AGITATED AND ANXIOUS AND IS ATTEMPTING TO REMOVE IV LINE. REORIENTED PT AND CALMED PT WITH SPOUSES ASSISTANCE.
--- NOTE | 2018-12-02 21:07 | NUR ---
PT PEG TUBE RESIDUAL CHECK 10 CC, REPLACED. ADMINISTERED MEDICATION. FLUSHED AND RESUMED FEEDING AND PT TOLERATING FEEDING WELL WILL CONTINUE TO MONITOR AT THIS TIME.
[2018-12-02 21:36] VITALS: BP 154/53
--- NOTE | 2018-12-03 00:15 | NUR ---
PT IS RESTING IN BED WITH EYES CLOSED AT THIS TIME. NO ACUTE DISTRESS NOTED. NO S/S PAIN NOTED. G-TUBE RUNNING AT 70 ML AN HOUR AT THIS TIME. IV INFUSING AND INTACT. SAFETY AND COMFORT MEASURES MAINTAINED, BED IN LOWEST POSITION, CALL LIGHT WITHIN REACH.
--- NOTE | 2018-12-03 02:30 | NUR ---
PT IS RESTING IN BED WITH EYES CLOSED AT THIS TIME. NO ACUTE DISTRESS NOTED. NO S/S OF PAIN NOTED. G-TUBE RUNNING AT 70ML/HR. IV INFUSING AND INTACT. SAFETY AND COMFORT MEASURES MAINTAINED, BED IN LOWEST POSITION, CALL LIGHT WITHIN REACH.
--- NOTE | 2018-12-03 05:16 | NUR ---
PT HAS SLEPT IN INTERMITTENT INTERVALS THROUGHOUT THE SHIFT. PT HAS BEEN CALM AND COOPERATIVE WITH CARE DURING THE SHIFT. NO ACUTE DISTRESS NOTED. NO S/S OF PAIN AT THIS TIME. WHEN PT IS AWAKE AND AT TIMES ANXIOUS PT REFUSES TO ANSWER STAFF AND WILL LOOK DOWN OR AWAY. G-TUBE FEEDING IN PLACE. EARLIER IN SHIFT RESIDUAL CHECK WAS LESS THAN 10 CC AND WAS REPLACED AND MEDICATION WAS ADMINISTERED. SAFETY AND COMFORT MEASURES MAINTAINED, BED IN LOWEST POSITION, CALL LIGHT WITHIN REACH. WILL ENDORSE CONTINUITY OF CARE TO THE ONCOMING RN.
--- NOTE | 2018-12-03 05:56 | NUR ---
PT BP IS 187/62 [address] PINA MADE AWARE AND CHANGED IVP HYDRALAZINE TO PO 10MG. WILL CONTINUE TO MONITOR BP FOR IMPROVEMENT.
--- NOTE | 2018-12-03 06:02 | NUR ---
RESIDUAL CHECK COMPLETED LESS THAN 10 CC RESIDUAL. REPLACED AND ADMINISTERED MEDICATION THROUGH G-TUBE.
[2018-12-03 06:10] VITALS: BP 187/62
[2018-12-03 06:24] LABS: BASOPHIL % 0.2 % (0-2); PLATELET COUNT 269 x10^3mcL (130-400)
[2018-12-03 06:38] LABS: CALCIUM 9.2 mg/dL (8.5-10.1); CARBON DIOXIDE 23.1 mmol/L (21-32); CHLORIDE SERUM 113 mmol/L (98-107); CREATININE SERUM 0.7 mg/dL (0.7-1.3); GLUCOSE SERUM 91 mg/dL (74-106); PHOSPHOROUS 3.2 mg/dL (2.5-4.9); POTASSIUM SERUM 3.1 mmol/L (3.5-5.1); RED CELL DISTRIBUTION WIDTH 20.4 % (11.5-14.5); SODIUM SERUM 149 mmol/L (136-145)
--- NOTE | 2018-12-03 08:06 | NUR ---
RECEIVED ASLEEP BUT OPEN EYES WITH COMMANDS. NO ACUTE RESP. DISTRESS NOTED. NO C/O PAIN OR DISCOMFORT. BP SLIGHTLY ELEVETED, PT MEDICATED WITH HYDRALAZINE BY NOC SHIFT NURSE. WILL RE CHECK BP. IVF INFUSING WELL AND SITE CLEAR. GTUBE IN PLACE, PT KARSTEN.WELL WITH FEEDING. NO RESIDUAL NOTED. CALL LIGHT WITHIN REACH. WILL CONTINUE WITH PLAN OF CARE.
[2018-12-03 08:22] LABS: ovalocyte/elliptocyte 1+; rbc morphology (normal/abnorm) ABNORMAL (NORMAL)
[2018-12-03 08:40] VITALS: BP 171/134
--- NOTE | 2018-12-03 11:17 | NUR ---
HAD LOOSE BM X2 THIS AM, IMMODIUM GIVEN. FAMILY AT BEDSIDE. PT CLEANED AND REPOSITIONED FOR COMFORT.
--- NOTE | 2018-12-03 13:27 | NUR ---
Follow-up Nutrition Assessment- 258T/A JULIAN DUNN IA HR Dx: Dehydration Labs: (12/03) NA 149H, K3.1L Meds: Lactinex, zofran TF Regimen: Jevity 1.2 @ 45ml/hr, goal 70ml/hr. Advance by 10ml Q6H. FWF 150ml Q6H. TF intake: 1540ml Weights: 65kg Skin: GT Feeding site CDI, LT buttock w/opifoam Gera: 13 Edema: none Last BM: 12/01 (continues to have watery diarrhea) RDN visit(12/03): Jevity 1.2 is running at 70ml/hr. pt does not have any residuals however pt still has watery diarrhea. Pt's mentioned that pt tolerated Jevity 1.5 for a few months at home before diarrhea commenced. Estimated Nutritional Needs Based on actual body weight 64.8 kg Energy: 5077-5843 kcal/d (30-35 kcal/kg- weight gain) Protein: 65-78 g/d (1.0-1.2 g/kg)-maintenance and preservation of lean body mass Fluid: 9515-0212 ml/d (1 ml/kcal-fluid balance) or per doctor Nutrition Diagnosis 1. Unintentional weight loss related to medical condition as evidenced by significant weight loss of 11.2% x 3 months. 2. Inadequate Enteral nutrition infusion related to TF not initiated as evidenced by clamped PEG tube. Intervention 1. Continue Jevity 1.2 @ 70ml/hr. Advance by 10ml Q6H. FWF 150ml Q6H. Goal rate will provide 2000 kcal and 93g protein, 1355 ml free water. 2. Bolus Regimen: Jevity 1.2, Rate: 250ml Q4H, FWF 170ml Q6H. This provides 1800 kcal, 83g protein, 1210ml free water. This meets >75% of calorie and protein needs. Monitor/Evaluate Previous goal: progress to TF goal of 70ml/hr (met) Goal: TF intake at least 75% of estimated needs Monitor: TF intake, Labs, GI function F/U in 2-3 days as high risk 12/05-12/06
--- NOTE | 2018-12-03 13:36 | NUR ---
BP NOTED 187/66, APPLICATIONS PACKAGER MYRANDA NOTIFIED, ORDERED TO PLACE PT BACK ON TELE AND ADM. HYDRALAZINE IVP. MEDS GIVEN AND PT PLACED ON TELE #19. REPOSITIONED IN BED FOR COMFORT. FAMILY AT BEDSIDE.
--- NOTE | 2018-12-03 15:14 | NUR ---
BP NOW 147/74 AND MAP OF 98. PT RESTING IN NO DISTRESS. FAMILY AT BEDSIDE.
[2018-12-03 15:15] VITALS: BP 147/74
[2018-12-03 16:43] VITALS: BP 150/68
--- NOTE | 2018-12-03 18:49 | NUR ---
PT HAD ANOTHER WATERY STOOL, CLEANED AND PERICARE DONE. REPOSITIONED IN BED FOR COMFORT. NO C/O PAIN OR DISCOMFORT AT THIS TIME. VS WNL. CALL LIGHT WITHIN REACH. GTUBE REMAINS IN PLACE AND PT TOLERATING FAIRLY WITH FEEDING. WILL BE ENDORSED TO INCOMING SHIFT.
--- NOTE | 2018-12-03 20:29 | NUR ---
PT CURRENTLY RESTING IN BED, NO ACUTE DISTRESS. A/O X1, HX OF DEMENTIA, PARKINSONS, AND SEIZURES. SZ PRECAUTIONS IN PLACE. TELE #19 SHOWING SINUS RHYTHM, NO S/S OF CHEST PAIN NOTED. PULSES PALPABLE IN ALL EXTREMITIES, NO EDEMA NOTED. LUNG SOUNDS CTA BILATERALLY, NO RESPIRATORY DISTRESS NOTED. BOWEL SOUNDS ACTIVE, LAST BM 12/03/18, LOOSE STOOLS. URINARY INCONTINENCE NOTED. GENERALIZED WEAKNESS, PT WHEELCHAIR BOUND. AIR MATTRESS IN PLACE. DRY SCAB TO COCCYX, OPTIFOAM DRESSING IN PLACE. IV PATENT AND INTACT. BED IN LOWEST POSITION, SIDE RAILS UP X2, CALL LIGHT WITHIN REACH. WILL CONTINUE TO MONITOR.
[2018-12-03 22:40] VITALS: BP 135/53
[2018-12-04] VITALS (7 sets, daily range): BP systolic 138–184; BP diastolic 52–86
[2018-12-04 06:16] LABS: BASOPHIL % 0.5 % (0-2); PLATELET COUNT 250 x10^3mcL (130-400)
--- NOTE | 2018-12-04 06:24 | NUR ---
PT SLEPT PERIODICALLY THROUGHOUT NIGHT, NO ACUTE DISTRESS. ALL NEEDS MET AND ATTENDED TO. NO SIGNIFICANT CHANGES. IV PATENT AND INTACT. BED IN LOWEST POSITION, SIDE RAILS UP X2, CALL LIGHT WITHIN REACH. WILL ENDORSE CARE TO ONCOMING NURSE.
[2018-12-04 06:45] LABS: RED CELL DISTRIBUTION WIDTH 19.6 % (11.5-14.5)
[2018-12-04 06:57] LABS: CALCIUM 9.2 mg/dL (8.5-10.1); CARBON DIOXIDE 19.2 mmol/L (21-32); CHLORIDE SERUM 122 mmol/L (98-107); CREATININE SERUM 0.7 mg/dL (0.7-1.3); GLUCOSE SERUM 94 mg/dL (74-106); SODIUM SERUM 158 mmol/L (136-145)
[2018-12-04 07:03] LABS: POTASSIUM SERUM 2.8 mmol/L (3.5-5.1)
--- NOTE | 2018-12-04 07:41 | NUR ---
RECEIVED IN NO DISTRESS, AWAKE AND ALERT. BP SLIGHTLY ELEVETED, MEDICATED WITH NOC SHIFT NURSE WITH GOOD RELIEF. BP NOW 155/86. NO C/ PAIN OR DISCOMFORT. GTUBE IN PLACE AND PT TOLERATING WELL. IVF INFUSING WELL, SITE CLEAR. CALL LIGHT WITHIN REACH. WILL CONTINUE WITH PLAN OF CARE.
--- NOTE | 2018-12-04 12:01 | NUR ---
IV TO LT WRIST NOTED LEAKING, NEW SITE INSERTED TO LFA, PATENT AND IVF INFUSING WELL. FAMILY AT BEDSIDE. NO C/O PAIN OR DISCOMFORT. HAD LOOSE BM X1 THIS AM, CLEANED AND PERICARE DONE.
--- NOTE | 2018-12-04 13:44 | NUR ---
BP ELEVETED 165/67, HYDRALAZINE IVP GIVEN PER ORDER. PT COUGHED UP A CHUNK OF BLOOD TINGED PHLEGM. ORAL CARE DONE NO ACTIVE BLEEDING NOTED TO MOUTH. WILL CONTINUE TO MONITOR AND NOTIFY MD. PT IN NO ACUTE DISTRESS, REPOSITIONED IN BED FOR COMFORT. FAMILY AT BEDSIDE.
--- NOTE | 2018-12-04 18:52 | NUR ---
REMAINS IN NO ACUTE DISTRESS, RESTING IN BED. FAMILY AT BEDSIDE. NO S/S OF PAIN OR DISCOMFORT AT THIS TIME. GTFEEDING CHANGED PER ORDER, SUPLENA/ NEPHRO INFUSING WELL. STARTED AT 10ML/HR AND INCREASED TO 20ML CURRENTLY. GOAL IS 70ML/HR. NO N/V AT THIS TIME. IVF INFUSING WELL AND SITE CLEAR. CALL LIGHT WITHIN REACH.WILL BE ENDORSED TO INCOMING SHIFT.
--- NOTE | 2018-12-04 20:07 | NUR ---
PT CURRENTLY RESTING IN BED, NO ACUTE DISTRESS. A/O X1. HX OF DEMENTIA, PARKINSONS, AND SEIZURES. SZ PRECAUTIONS IN PLACE. TELE #19 SHOWING SINUS RHYTHM, NO S/S OF CHEST PAIN NOTED. PULSES PALPABLE IN ALL EXTREMITIES, NO EDEMA NOTED. LUNG SOUNDS CTA BILATERALLY, NO RESPIRATORY DISTRESS NOTED. BOWEL SOUNDS ACTIVE, LAST BM 12/04/18, LOOSE STOOLS. GTUBE IN PLACE, FEEDING OF SUPLENA @20 ML/HR, FWF OF 200 ML Q4H, NO RESIDUAL NOTED. URINARY INCONTINENCE NOTED. GENERALIZED WEAKNESS, PT WHEELCHAIR BOUND. AIR MATTRESS IN PLACE. IV PATENT AND INTACT. BED IN LOWEST POSITION, SIDE RAILS UP X2, CALL LIGHT WITHIN REACH. WILL CONTINUE TO MONITOR.
--- NOTE | 2018-12-04 20:30 | NUR ---
PT TOLERATING FEEDING WELL, NO RESIDUAL NOTED. INCREASED TUBE FEEDING TO 30 ML/HR. WILL CONTINUE TO MONITOR.
--- NOTE | 2018-12-05 00:41 | NUR ---
PT CURRENTLY RESTING IN BED, NO ACUTE DISTRESS. NO RESIDUAL NOTED IN GTUBE, FEEDING ADVANCED TO 40 ML/HR. WILL CONTINUE TO MONITOR.
[2018-12-05 04:31] VITALS: BP 152/60
--- NOTE | 2018-12-05 06:07 | NUR ---
PT SLEPT PERIODICALLY THROUGHOUT NIGHT, NO ACUTE DISTRESS. ALL NEEDS MET AND ATTENDED TO. NO SIGNIFICANT CHANGES. IV PATENT AND INTACT. NO RESIDUAL NOTED IN GTUBE, FEEDING ADVANCED TO 50 ML/HR. BED IN LOWEST POSITION, SIDE RAILS UP X2, CALL LIGHT WITHIN REACH. WILL ENDORSE CARE TO ONCOMING NURSE.
[2018-12-05 06:33] LABS: CALCIUM 9.2 mg/dL (8.5-10.1); CARBON DIOXIDE 19.2 mmol/L (21-32); CHLORIDE SERUM 127 mmol/L (98-107); CREATININE SERUM 0.9 mg/dL (0.7-1.3); GLUCOSE SERUM 109 mg/dL (74-106)
[2018-12-05 06:39] LABS: POTASSIUM SERUM 2.8 mmol/L (3.5-5.1); SODIUM SERUM 161 mmol/L (136-145)
--- NOTE | 2018-12-05 07:37 | NUR ---
RECEIVED AWAKE, IN NO RESP. DISTRESS. FAMILY AT BEDSIDE. IVF INFUSING WELL AND SITE CLEAR. PT KARSTEN. WELL WITH GTUBE FEEDING. CURRETLY RUNNING AT 50ML/HR, GOAL TO 70ML. NO N/V AT THIS TIME. NO RESIDUAL. PT HAD 3 EPISODES OF LOOSE STOOL AT NIGHT PER REPORT. NONE AT THIS TIME. REPOSITIONED FOR COMFORT,SIDE RAILS UP. WILL CONTINUE WITH PLAN OF CARE.
[2018-12-05 07:45] LABS: BASOPHIL % 0.2 % (0-2); PLATELET COUNT 257 x10^3mcL (130-400); RED CELL DISTRIBUTION WIDTH 20.2 % (11.5-14.5)
[2018-12-05 09:21] VITALS: BP 162/55
--- NOTE | 2018-12-05 10:57 | NUR ---
PT HAD SEMI-LIQ. BM THIS AM, TOM CARE DONE, STOOL SAMPLE FOR O/P COLLECTED.
--- NOTE | 2018-12-05 11:41 | NUR ---
Follow-up Nutrition Assessment Dx:Dehydration with diarrhea x 3 weeks Labs:(12/05) Na:161H, K:2.8L, BH, BUN:21H, H/H:12.3/37L Meds: Hydralazine, Imodium, KCL, Keppra, Lactinex, Proscar, Sinemet, Zofran Current Nutrition Support:Suplena at 70ml/hr FWF:200ml q 4hr TF intake: (12/03)1540ml (12/04)620ml (12/05)815ml I/O: (12/03) 3420/10 (+3410ml) (12/04)2670/5(+2665ml) (12/05) 2650/1(2649ml) Residuals: (12/03)<10ml (12/04)0ml(12/05)0ml Weights: (12/01) 142#, 64.8kg (12/03) 65kg (12/05) Skin: dry scab to coccyx Edema: None Last BM:12/04 loose stools Per progress note 12/04, no diarrhea at this time. Plan is to correct potassium, if no diarrhea and K+ WNL, pt will discharge tomorrow. Per RN note 12/04, TF changed to Suplena per Dr. Ivey recommendations. Spoke to RN Ne, who explained pt was swithced to Nepro with CHO steady bc patient was not tolerating Jevity 1.2 and had watery stools. Once switched to Nepro with Bananatrol BID , pt's stool is now semi-formed. Pt is currently at 50ml/hr and tolerating per RN. Estimated Nutritional Needs based on actual body weight: 65kg Energy: 1900-2200kcal/day (30-35kcal/kg for weight gain) Protein: 65-78g/day (1-1.2g/kg for geriatric maintenance) Fluid:1900-2200ml/day (1ml/kcal ) or per doctor Nutrition Diagnosis 1. Unintentional weight loss related to medical condition as evidenced by significant weight loss of 11.2% x 3 months (ongoing) 2. Inadequate enteral nutrition infusion related to TF no initiated as evidenced by clamped PEG tube (resolved, TF running) Intervention 1. Recommend continue Nepro with Bananatrol BID at 50ml/hr per Dr. Ivey recommendations. This provides 2160kcal, 97g protein and 2072ml fluid daily. This meets 100% caloric needs and 124% protein. 2. Nepro at 70ml/hr exceeds pt's caloric and protein needs. Monitor/Evaluate Previous goal: TF intake at least 75% of estimated needs Goal: TF intake at least 75% of estimated needs Monitor: TF intake/tolerance, Labs, GI function and weights F/U in 2-3 days as high risk: 12/07-8
[2018-12-05 13:11] VITALS: BP 150/72
--- NOTE | 2018-12-05 15:00 | NUR ---
REPOSITIONED FOR COMFORT, NO ACUTE DISTRESS NOTED. HAD ANOTHE EPISODE OF SEMIL-LIQ STOOL X1.
[2018-12-05 16:53] VITALS: BP 157/63
--- NOTE | 2018-12-05 19:21 | NUR ---
REMAINS IN NO ACUTE DISTRESS, RESTING IN BED, FAMILY AT BEDSIDE. NO S/S OF PAIN OR DISCOMFORT AT THIS TIME. REPOSITIONED IN BED FOR COMFORT. SIDE RAILS UP.IVF INFUSING WELL AND NEW SITE CLEAR. GTUBE IN PLACE, PT KARSTEN. WELL WITH FEEDING. NO N/V NOR RESIDUAL NOTED. WILL BE ENDORSED TO INCOMING SHIFT.
[2018-12-05 20:07] VITALS: BP 166/64
--- NOTE | 2018-12-05 20:21 | NUR ---
PT CURRENTLY RESTING IN BED, NO ACUTE DISTRESS. A/O X1. HX OF PARKINSONS, DEMENTIA, AND SEIZURES. SZ PRECAUTIONS IN PLACE. TELE #19 SHOWING SINUS RHYTHM, NO CHEST PAIN NOTED. PULSES PALPABLE IN ALL EXTREMITIES, NO EDEMA NOTED. LUNG SOUNDS CTA BILATERALLY, NO RESPIRATORY DISTRESS NOTED. BOWEL SOUNDS ACTIVE, LAST BM 12/05/18, LOOSE STOOLS. GTUBE FEEDING OF SUPLENA AT 50ML/HR, FWF 200ML Q4H, NO RESIDUAL NOTED. URINARY INCONTINENCE. GENERALIZED WEAKNESS. AIR MATTRESS IN PLACE. IV PATENT AND INTACT. BED IN LOWEST POSITION, SIDE RAILS UP X2, CALL LIGHT WITHIN REACH. WILL CONTINUE TO MONITOR.
--- NOTE | 2018-12-06 03:46 | NUR ---
PT CURRENTLY RESTING IN BED, NO ACUTE DISTRESS. PHOTOS TAKEN OF HEALED WOUND TO BUTTOCKS. PT CLEANED AND REPOSITIONED WITH ASSISTANCE FROM GITA SUÁREZ. WILL CONTINUE TO MONITOR.
[2018-12-06 05:10] VITALS: BP 151/73
--- NOTE | 2018-12-06 06:17 | NUR ---
PT SLEPT PERIODICALLY THROUGHOUT NIGHT, NO ACUTE DISTRESS. ALL NEEDS MET AND ATTENDED TO. NO SIGNIFICANT CHANGES. IV PATENT AND INTACT. FAMILY AT BEDSIDE. BED IN LOWEST POSITION, SIDE RAILS UP X2, CALL LIGHT WITHIN REACH. WILL ENDORSE CARE TO ONCOMING NURSE.
--- NOTE | 2018-12-06 08:00 | NUR ---
RECEIVED PT IN BED A/OX1 PERSON ONLY. PT WITH HX OF PARKINSIONS AND SZ, PRECAUTIONS MAINTAINED. PT WITH GARBLED SPEECH UNCOMPREHENSABLE. UNABLE TO MAKE NEEDS KNOWN FOLLOW COMMANDS. FAMILY AT BEDSIDE. RESP EVEN AND UNLABORED WITH DIMINISHED BS TO BILAT BASES. ON RA AND RT PROTOCOL. NSR WITH BBB HR 95-100. NO APPARENT CHEST DISCOMFORT. NO EDEMA NOTED WITH IVF TO RFA. ABD SOFT, NONTENDER WITH ACTIVE BS X4. PER REPORT REMAINS WITH WATERY STOOL WITH SOME CHUNKS IN IT STRARTING TO BECOME FORMED. ON GT FEEDING NEPRO AT 50ML/HR TOLERATED WELL NO RESIDUAL NOTED. INCONTINENT OF B+B. NOTED WITH HEALED AREA TO LT BUTTOCK NO OPEN SKIN NOTED. APPLYED ZGUARD TO PROTECT SKIN. NO ERRYTHEMA NOTED AT THIS TIME. TO TOM AREA. PT WITH FREQUENT WATERY STOOL, FREQUENT TOM CARE PROVIDED AND PROTECTION WITH ZGUARD. PT REPOSITIONED Q2HRS, ON AIRLOSS MATTRESS. CALL LIGHT IN REACH NEED ATTENDED TO. FAMILY AT BEDSIDE.
[2018-12-06 08:29] LABS: CALCIUM 9.2 mg/dL (8.5-10.1); CHLORIDE SERUM 130 mmol/L (98-107); CREATININE SERUM 1.1 mg/dL (0.7-1.3); GLUCOSE SERUM 103 mg/dL (74-106)
[2018-12-06 08:33] LABS: POTASSIUM SERUM 2.7 mmol/L (3.5-5.1); SODIUM SERUM 164 mmol/L (136-145)
--- NOTE | 2018-12-06 08:45 | NUR ---
ALEC SCHWARZ CALLED AND MADE AWARE OF CRITICAL AM LABS NOTIFIED OF K+ 2.7 AND NA+164. NO ORDERS RECEIVED AT THIS TIME.
[2018-12-06 08:47] VITALS: BP 145/54
--- NOTE | 2018-12-06 10:39 | NUR ---
SPOKE WITH DR. VALENTINO CONCERNED OVER PT'S ELECTROLITE IMBALANCE. REQUESTED FOR PAYMENT COLLECTOR TO BE NOTIFIED TO CONSIDER NEPRHO CONSULT, D/T ELECTROLITY PROBLEM. WILL SPEAK WITH PAYMENT COLLECTOR.
--- NOTE | 2018-12-06 11:54 | NUR ---
Follow-up Nutrition Assessment- 258T/A JULIAN DUNN FU HR Dx: Dehydration Labs: (12/06) NA 164H, K2.7L, BUN 22H Meds: Lactinex, Zofran, D5%, Kcl 10%, TF Regimen: Suplena @ 10ml/hr, goal 70ml/hr. TF intake: 1150ml Weights: 64kg (11/30) Skin: intact Gera: 14 Edema: none Last BM: 12/06 (continues to have watery diarrhea) RDN Visit (12/06): RDN received call from Dr. Ivey to discuss about current TF regimen and changing to a elemental/semi-elemental formula. Pt's was at bedside. She said that pt still has diarrhea although stools are more formed than before. Discussed the plan of starting a elemental formula and she verbalized understanding of it. Currently Nepro with Carbsteady recommended by MD is running at 50 ml/hr. RDN visit(12/03): Jevity 1.2 is running at 70ml/hr. pt does not have any residuals however pt still has watery diarrhea. Pt's mentioned that pt tolerated Jevity 1.5 for a few months at home before diarrhea commenced. Estimated Nutritional Needs Based on actual body weight 64.8 kg Energy: 9062-3387 kcal/d (30-35 kcal/kg- weight gain) Protein: 65-78 g/d (1.0-1.2 g/kg)-maintenance and preservation of lean body mass Fluid: 5083-6585 ml/d (1 ml/kcal-fluid balance) or per doctor Nutrition Diagnosis 1. Unintentional weight loss related to medical condition as evidenced by significant weight loss of 11.2% x 3 months. (ongoing) 2. Altered GI function related to medical condition as evidenced by diarrhea. Intervention 1. Recommend Vital AF 1.2 @ 20 ml/hr, goal 70ml/hr. Advance by 10ml Q8H. FWF 150ml Q6H. Goal rate will provide 2000 kcal and 120 g protein, 1360 ml free water. 2. Bolus Regimen: Vital AF 1.2, Rate: 250ml Q4H, FWF 170ml Q6H. This provides 1800 kcal, 110g protein, 1220 ml free water. This meets >75% of calorie and protein needs. Monitor/Evaluate Previous goal: progress to TF goal of 70ml/hr Goal: TF intake at least 75% of estimated needs Monitor: TF intake, Labs, GI function F/U in 2-3 days as high risk 12/08-12/09
[2018-12-06 12:13] VITALS: BP 128/66
--- NOTE | 2018-12-06 12:20 | NUR ---
DR. BANKS IN TO EVAL PT. DISCUSS POC WITH FAMILY AT BEDSIDE. OBTAINED OR TO CHANGE IVF. ORDERED CARRIED OUT.
--- NOTE | 2018-12-06 13:15 | NUR ---
PT WAS STARTED ON KRIDER ORDERED, WITH IVF TO BE CHANGED TO D5 1/2NS WITH 20MEQ KCL. IVF WILL BE CHANGED ONCE KRIDER IS COMPLETED.
--- NOTE | 2018-12-06 15:42 | NUR ---
DR. ROMAN ON TO EVAL PT. UPDATED ON CONDITION. SPEAKING WITH AT THIS TIME. CONT TO MONITOR.
--- NOTE | 2018-12-06 16:38 | NUR ---
PHYSICAL THERAPY NOTE PATIENT DEMONSTRATED NO FUNCTIONAL MOBILITY CHANGE WITH SKILLED PHYSICAL THERAPY INTERVENTION. NO RESPONSE IN COMMAND AT THIS TIME. DISCHARGED FROM PHYSCIAL THERAPY AND END TO NS FOR ADL NEEDS
[2018-12-06 16:51] VITALS: BP 106/58
--- NOTE | 2018-12-06 17:25 | NUR ---
PHYSICAL THERAPY DAILY NOTES CO-SIGN All documentation done by the Nuclear Engineering Technician for 12/06/18 has been reviewed. I agree with the documentation. Reviewed/Co-Signed by: Gallo Lane PT Documentation Done by:CHETAN GROVE OCULAR CARE AIDE FOR 12/04/2018
--- NOTE | 2018-12-06 18:11 | NUR ---
PT RESTING COMFORTABLY WITH ONGOING GT FEEDING, TOLERATED WELL. PT WITH HOB ELEVATED AT ALL TIMES. PT HAD NOTICIBLE DECREASE IN EPISODES OF DIARRHEA. HAD ON LARGE BM THIS AM THEN 2 SMALLER BM IN THE DAY. STOOL NO LONGER WATERY HAS YOLKY CONSISTANCE. SKIN PROTECTED WITH Z-GUARD NO OPEN AREAS NOTED. PT REPOSITIONED Q2HRS, ON LOW AIRLOSS MATTRESS. NEEDS ANTICIPATED AND ATTENDED TO. CALL LIGHT IN REACH NEEDS ATTENDED TO.
--- NOTE | 2018-12-06 19:05 | NUR ---
REPORT RECEIVED FROM DAY SHIFT RN. PATIENT WAS SEEN AND IS RESTING COMFORTBALY IN BED WITH FAMILY AT BEDSIDE. ON 2L NC. RT PROTOCOL. CONGESTED BREATHING HEARD BILATERALLY. BREATHING IS EVEN AND UNLABORED. SEIZURE PRECAUTIONS IN PLACE. ON AIR MATTRESS. NO S/S OF PAIN. GTUBE NOTED WITH CONTINUOUS TUBE FEEDING AT 50ML/HR. COMFORT AND SAFETY MEASURES MAINTAINED. PADDED SIDE RIALS UP X2. BED IS LOCKED AND IN THE LOWEST POSITION. CALL LIGHT IS WITHIN REACH. INSTRUCTED PATIENT AND FAMILY TO CALL FOR ASSISTANCE. WILL CONTINUE TO MONITOR.
[2018-12-06 21:01] VITALS: BP 107/71
--- NOTE | 2018-12-06 21:10 | NUR ---
TUBE FEEDING PAUSED. GTUBE RESIDUAL CHECKED BEFORE ADMINISTERING MEDS. 10ML OF FEEDING AND BILE NOTED. RESIDUALS RETURNED. PATIENT TOLERATED MEDS WELL. TUBE FEEDING RESTARTED AT 50ML/HR. DRAINAGE NOTED AT THE GTUBE SITE. WILL CHANGE LATER. DAUGHTER AT BEDSIDE. NO S/S OF PAIN. LABORED BREATHING NOTED WITH CONGESTION. PATIENT COUGHED UP SOME SPUTUM AND BREATHING IS IMPROVING. CALL LIGHT IS WITHIN REACH. WILL CONTINUE TO MONITOR.
--- NOTE | 2018-12-06 22:33 | NUR ---
PATIENT'S GTUBE IS DRAINING GREEN/YELLOW FLUID. CLEANED GTUBE SITE. APPLIED A NEW WICK. PATIENT TOLERATED WELL. TUBE FEEDING PAUSED. DR. HENNING AWARE. SHE SAID SHE WILL COME ASSESS THE PATIENT. WILL CONTINUE TO MONITOR.
--- NOTE | 2018-12-07 00:14 | NUR ---
PATIENT IS RESTING COMFORTABLY IN BED. ON 2L NC. TACHYPENA NOTED. UNLABORED AT THIS TIME. TUBE FEEDING IS STILL STOPPED. AWAITING KUB. NO DRAINING NOTED AT GTUBE SITE. NO DISTRESS NOTED. FAMILY AT BEDSIDE. IV TO THE RFA INFUSING WELL. PATENT AND INTACT. COMFORT MEASURES MAINTAINED. CALL LIGHT IS WITHIN REACH. WILL CONTINUE TO MONITOR.
--- NOTE | 2018-12-07 01:25 | NUR ---
AFTER 2 BIG WATERY BMS REPORTED BY THE RN CIRCULATING, ABD IS FLAT/SOFT. STILL AWAITING KUB. GTUBE WICK CHANGED. STOOL LIKE DRAINGING STILL COMING OUT AND BUBBLING AT THIS TIME. FAMILY AT BEDSIDE. PATIENT IS RESTING WITH EYES CLOSED. CALL LIGHT IS WITHIN REACH. WILL CONTINUE TO MONITOR.
--- NOTE | 2018-12-07 02:01 | NUR ---
RADIOLOGY DOING KUB AT BEDSIDE.
[2018-12-07 05:44] VITALS: BP 98/52
--- NOTE | 2018-12-07 05:51 | NUR ---
KUB RESULTS CAME BACK. GTUBE IS ALSO LEAKING WATERY STOOL. TUBE FEEDING REMAINED PAUSED. DR. HENNING AWARE. NO NEW ORDERS AT THIS TIME. WILL CONTINUE TO MONITOR PATIENT AND GTUBE SITE. FAMILY AT BEDSIDE. NO DISTRESS NOTED. CALL LIGHT IS WITHIN REACH.
--- NOTE | 2018-12-07 06:44 | NUR ---
PATIENT SLEPT IN INTERVALS THROUHGOUT THE NIGHT. TACHYPNEA AND LABORED AT TIMES. ON 2L NC WITH RT PROTOCOL. NO S/S OF PAIN NOTED. FAMILY AT BEDSIDE THROUGHOUT THE NIGHT. PATIENT CLEANED AND CHANGED X3 THROUGHOUT THE NIGHT. IV TO THE RFA INFUSING WELL. PATENT AND INTACT. NO REDNESS OR SWELLING NOTED. GTUBE SITE IS LEAKING WATERY STOOL. SITE IS SLIGHTLY RED. TUBE FEEDING PAUSED AT THIS TIME. DR HENNING AWARE. SEIZURE PRECAUTIONS IN PLACE AND MAINTAINED. NO SEIZURES NOTED. COMFORT AND SAFETY MEASURES MAINTAINED. ALL NEEDS AND CONCERNS ADDRESSED. WILL ENDORSE CARE TO DAY SHIFT RN. CALL LIGHT IS WITHIN REACH.
[2018-12-07 06:49] LABS: CALCIUM 9.6 mg/dL (8.5-10.1); CARBON DIOXIDE 15.6 mmol/L (21-32); CHLORIDE SERUM 133 mmol/L (98-107); CREATININE SERUM 3.1 mg/dL (0.7-1.3); GLUCOSE SERUM 103 mg/dL (74-106); POTASSIUM SERUM 3.5 mmol/L (3.5-5.1)
[2018-12-07 06:52] LABS: SODIUM SERUM 164 mmol/L (136-145)
[2018-12-07 07:16] LABS: PLATELET COUNT 281 x10^3mcL (130-400)
--- NOTE | 2018-12-07 07:20 | NUR ---
RECEIVED PT IN BED LETHARGIC RESPONDING TO PAINFUL STIMULI. RESP EVEN AND LABORED WITH CONGESTED UPPER AIRWAYS AND DIMINISHED BASES. ON O2 AT 2L/MIN VIA NC O2 SAT 94%. ORAL SUCTION PROVIDED PRN AND RT FOR TREATMENS. HR 85 ON TELE WITH NSR WITH BBB AND PACS. NO S/SX OF CP/PRESSURE AT THIS TIME. NO EDEMA NOTED WITH IVF TO RFA D5 1/2NS WITH 20MEQ OF KCL AT 100ML/HR. ABD SOFT, SLIGHTLY DISTENDED WITH ACTIVE BS X4. PT HAVING WATERY STOOLS AGAIN WORSENIGN OVERNIGHT. PER REPORT PT DEVEOLPED ABD DISTENSION OVERNIGHT AN STOOL LIKE DRAINAGE WAS NOTED LEAKING FROM GT SITE. SMALL AMOUNT OF DRAINAGE NOTED AT THIS TIME. PT INCONTINENT OF URINE. PT TURNED Q2HRS ON LOW AIRLOSS MATTRESS. SKIN INTACT AT THIS TIME. NOTED WITH HEALED SCAR TO LT BUTTOCK. PERFORM FREQUENT TOM CARE AND APPLY Z-GUARD TO PROTECT SKIN. BILAT HEELS OFF LOADED ON PILLOW. CALL LIGHT IN REACH, FAMILY AT BEDSIDE.
[2018-12-07 07:50] VITALS: BP 69/39
--- NOTE | 2018-12-07 08:00 | NUR ---
MADE AWARE BY SKI MAKER WOOD THAT PT HAD LOW B/P 69/34, HR 95 WITH I2 SAT 93% ON RA. LENS ASSORTER PAGED TO NOTIFY OF CHANGES. SPOKE WITH LENS ASSORTER AT 0750, UPDATED ON PT STATUS OVERNIGHT AND CURRENT STATUS INCLUDING LABS AND DNR ORDER. OBTAINED ORDER FOR 500ML NS BOLUS AT THIS TIME. LENS ASSORTER TO SPEAK WITH FAMILY REGARDING PT'S DECLINING CONDITION. STATERED IV BOLUS AT THIS TIME. PT NOTED WITH SHALLOW BREATHING COMPARED TO LABORED BREATHING EARLIER IN THE DAY. LENS ASSORTER SPOKE WITH DAUGHTER AT BEDSIDE AND NOTIFIED THEM OF THE DECLINE OFFERED IF THEY DESIRE FOR PT TO BE PLACED ON IV DRIP MEDICATIONS TO MAINTAINED B/P IF THEY CHOOSED TO AND TRANSFER TO ICU OR TO ALLOW NATURAL COURSE TO TAKE PLACE AND PLACE PT ON HOSPICE. FAMILY STATED THEY WILL CONTACT ALL FAMILY MEMBERS INVOLVED IN CARE AND NOTIFY THEM, THEY REQUESTED SOME TIME.
--- NOTE | 2018-12-07 08:45 | NUR ---
MADE AWARE BY WEAPONS OFF[employer]ER [employer] THAT FAMILY WANTED TO SPEAK WITH [employer]. WAS LATER NOTIFIED THAT FAMILY HAD REQUESTED HOSPICE EVAL FOR PT, AND HE WOULD REMAIN DNR. AT THIS TIME PT'S HAD ARRIVED AND OTHER FAMILY MEMBERS WHERE PRESENT.
--- NOTE | 2018-12-07 08:47 | NUR ---
AM MEDS HEALED AT THIS TIME UNTIL GI EVALUATES PT SINCE DRAINAGE COMING OUT OF GT APPEARS TO BE STOOL. PT HAVING WATERY STOOLS ONCE MORE, LARGE AMOUNTS STOOL LEAKS OUT WHEN PT IS TURNED. FAMILY REMAINS AT BEDSIDE. WITH ONGOIGN BOLUS. CALL LIGHT IN REACH NEEDS ATTENDED TO.
--- NOTE | 2018-12-07 09:05 | NUR ---
BOLUS COMPLETED RECHECKED B/P AT THIS TIME 54/33 MAP 40. HR 78. PT WITH SHALLOW BREATHING RESPIRATORY RATE OF 12. PULSE OX 78 ON 2L VIA NC. INCREASED O2 TO 4L/MIN. LIEN ASKED IF SHE WOULD LIKE PT TO BE PLACED IN NONREBREATHER MASK OR HAVE ANOTHER BOLUS NODDED "NO". MADE AWARE THAT PT WAS CONTINUING TO DECLINED AND NODDED UNDERSTANDING. PULP MILL TEAM LEADER PAGED.
--- NOTE | 2018-12-07 09:40 | NUR ---
NOTED PT'S HR DROP ON TELE TO 40S-30S. PASTRY BAKER CALLED AT THIS TIME. WITH NO RESPONSE. SANDER OPERATOR CALLED TO ATTEMPT TO CONTACT PASTRY BAKER. ENTERED PT'S ROOM TO NOTIFY FAMILY. NOTED NO BREATHSOUNDS NO PULSE AT ARROUND 0944. WAS MADE AWARE PASTRY BAKER IN ROUTE. TO PRONOUNCE.
--- NOTE | 2018-12-07 09:50 | NUR ---
PRODUCT SUPPORT CONSULTANT MENDOZA AT BEDSIDE, PRONOUNCE PT WITH TIME OF AT 0945. PRODUCT SUPPORT CONSULTANT SPOKE WITH FAMILY GAVE CONDOLANCES AND NOTIFIED OF WHAT WILL HAPPEND NEXT, INCLUDING CALLS TO [facility]ARNISHER'[facility] OFFICE AND [facility]. ORDERED GRIVENCE TRAY FOR FAMILY AT BEDSIDE.
--- NOTE | 2018-12-07 10:20 | NUR ---
ALAN CALLED AT 1012, SPOKE WITH RIGO. REPORT GIVEN CASE NUMBER OBTAINED [phone]. MADE AWARE THEY WILL CALL BACK IF THEY HAVE ANY FURTHER QUESTIONS.
--- NOTE | 2018-12-07 10:25 | NUR ---
TELESALES TEAM LEADER'S OFFICE CALLED. TO AWAIT CALL BACK FROM POCKET MAKER.
--- NOTE | 2018-12-07 10:33 | NUR ---
RECEIVED CALL BACK FROM [facility]AN SPOKE WITH CALLIE, REVIEWED PT CHART WAS NOTIFIED THAT THEY WILL NOT BE PERSOING DONATION AND BODY COULD BE RELEASE.
--- NOTE | 2018-12-07 11:28 | NUR ---
RECEIVE CALL FROM [employer]OTO [employer]OTH OPERATOR'S OFFICE SPOKE WITH DEPUTY CARLIN LEMA. REVIEWED CHART AND CAUSE OF WITH MELIAUTAshanti. PROVIDED WITH CONTACT INFO FOR NEXT OF KIN. PER BRIAN LEMA BODY HAS BEEN CLEARED FOR RELEASE. . SPOKE WITH PT'S STATED AT THIS TIME THEY ARE WORKING TO OBTAIN A MORTUARY MADE AWARE ARRANGEMENTS COULD ALWAYS BE MADE AT A LATER TIME. FAMILY STATED THEY WILL SAY THEIR FINAL GOOD BYES AND THEY WILL BE LEAVING SOON. CHARGE NURSE AWARE.
[2018-12-07 13:11] LABS: ATYPICAL LYMPH 2 %; BAND NEUTROPHIL 17 % (0-10); MONOCYTE 8 % (0-7); SEGMENTED NEUTROPHILS 58 % (37-75)
[2018-12-07 13:12] LABS: PLATELET MORPHOLOGY PLATELETS DECREASED
[2018-12-07 13:13] LABS: ovalocyte/elliptocyte 1+; rbc morphology (normal/abnorm) ABNORMAL (NORMAL)
[2018-12-07 13:14] LABS: burr cell (echinocyte) 1+
--- NOTE | 2018-12-07 13:40 | NUR ---
[facility]MORT[facility] CARE PROVIDED AWAITING TRANSPORTATION TO [facility] [place].
--- NOTE | 2018-12-07 15:30 | NUR ---
THE BODY TAKEN AND BROUGHT TO THE [place] BY THE SECURITY.
== END 2018-12-07 09:45 | disposition expired | DRG 391 ==
LOC: ED 20:26 → DU 11-30 01:17 → MU 12-01 15:44 → DU 12-03 13:25
PROVIDERS: Emergency Medicine; Internal Medicine; ADMIT General Practice
DX: R19.7 Diarrhea, unspecified (principal); N17.0 Acute kidney failure with tubular necrosis; E44.1 Mild protein-calorie malnutrition; E87.0 Hyperosmolality and hypernatremia; E87.2 Acidosis; E86.0 Dehydration; E87.6 Hypokalemia; G20 Parkinson's disease; J44.9 Chronic obstructive pulmonary disease, unspecified; R80.9 Proteinuria, unspecified; N40.0 Benign prostatic hyperplasia without lower urinary tract symptoms; G40.909 Epilepsy, unspecified, not intractable, without status epilepticus; F03.90 Unspecified dementia, unspecified severity, without behavioral disturbance, psychotic disturbance, mood disturbance, and anxiety; Z66 Do not resuscitate; Z93.1 Gastrostomy status; Z68.20 Body mass index [BMI] 20.0-20.9, adult; Z87.891 Personal history of nicotine dependence; Z85.46 Personal history of malignant neoplasm of prostate; Z86.73 Personal history of transient ischemic attack (TIA), and cerebral infarction without residual deficits
CPT/HCPCS: 84439; 87046; 87046-59; 97110-GP; 97530-GP; J0360; J1956; J3370; J3480; J3490; J7030; J7070; J7620; Q0092